=== PATIENT | male | born 1965 | race Caucasian/White ===

== ENCOUNTER 2019-09-28 19:29 | Emergency (ER) | payer OTHER ==
[~2019-09-28] VITALS: Ht 170.2 cm; Wt 68.0 kg
[2019-09-28 19:34] VITALS: Ht 170.2 cm; Wt 68.0 kg
[2019-09-28 21:04] VITALS: BP 136/88
== END 2019-09-28 21:05 | disposition home or self-care (01) ==
LOC: ED 19:29
DX: R51 Headache (principal); T50.905A Adverse effect of unspecified drugs, medicaments and biological substances, initial encounter; Y92.89 Other specified places as the place of occurrence of the external cause